=== PATIENT | female | born 1990 | race Hispanic/Latino ===

== ENCOUNTER 2016-03-10 14:03 | Emergency (ER) | payer OTHER ==
[2016-03-10] MEDS ORDERED: GENTAMICIN 0.3% OPHTH OINT 3.5 GM As Ordered ONE (15:00)
--- NOTE | 2016-03-10 15:09 | EDDOCDS ---
Nurse's Notes [facility] Name: India Garcia Age: 25 yrs Sex: Female : 1990 Arrival Date: 03/10/2016 Time: 14:03 Bed TR7 Private MD: RENITA NICHOLSON Diagnosis: Conjunctivitis-left eye Presentation: 03/10 14:12 Presenting complaint: Patient states: Left eye redness for 2 days. Adult Sepsis dwg Screening: The patient does not have new or worsening altered mentation. Patient's respiratory rate is less than 22. Systolic blood pressure is greater than 100. Patient has a qSOFA score of 0- Negative Sepsis Screen. Suicide/Homicide risk assessment- the patient denies having any suicidal and/or homicidal ideations and does not present with any other emotional, behavioral or mental health complaints. 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 Transition of care: patient was not received from another setting of care. 14:12 Acuity: ROBERTA Level 5 [facility] 14:12 Method Of Arrival: Walkin/Carried/Asstd [facility] Triage Assessment: 14:13 General: Appears in no apparent distress. Pain: Denies pain. Pt Declines HIV testing. 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 none - PMHx: none; - PSHx: none; - Social history: Smoking status: Patient states was never smoker of tobacco. No barriers to communication noted, The patient speaks fluent Mauritanian. - Family history: Not pertinent. - : The pt / caregiver states he / she is not on anticoagulants. Home medication list is obtained from the patient. - Exposure Risk Screening:: None identified. Screenin:05 Screening information is obtained from the patient. Fall risk: No risks identified. jmb Assistance ADL's: requires no assistance with activities of daily living. Abuse/DV Screen: The patient / caregiver reports he/she is: not in a situation that causes fear, pain or injury. Nutritional screening: No deficits noted. Advance Directives: Currently, there is no health care proxy. There is no active DNR order. There is no living will. There is no Power of Soaker Meat. home support is adequate. Assessment: 15:05 General: Patient instructed on discharge instructions. Patient asked if there were any b questions regarding discharge, patient stated no. Patient signed discharge instructions. Patient discharged in stable condition. . Vital Signs: 14:06 BP 107 / 73; Pulse 70; Resp 16; Temp 98.9; Pulse Ox 100% ; Weight 51.26 kg; Height 5 elp ft. 0 in. (152.40 cm); Pain 7/10; 15:05 BP 110 / 70; Pulse 68; Resp 18; Temp 98.8(O); Pulse Ox 100% on R/A; Pain 0/10; jmb 14:06 Body Mass Index 22.07 (51.26 kg, 152.40 cm) [facility] Vitals: 14:06 Log In Time: March 10, 2016 at 14:04. [facility] ED Course: 14:05 Patient visited by Melanie Peña PCA. elp 14:05 RENITA NICHOLSON is Private Physician. elp 14:05 Patient moved to Waiting elp 14:06 Patient visited by Melanie Peña PCA. elp 14:06 Patient moved to Pre RCE elp 14:12 Triage Initiated dwg 14:14 Patient moved to Triage 3 dwg 14:37 Homa Meneses PA-C is [facility]. dt4 14:40 Patient visited by Homa Meneses PA-C. dt4 15:04 Patient name changed from India\S\\S\Garcia\S\ to [place]\S\Jizal\S\Garcia. EDMS 15:04 Patient moved to TR7 jmb 15:05 [facility] Payment Agreement was scanned into [email or web address] and attached to record. lg 15:05 The patient / caregiver is instructed regarding the plan of care and ED course. jmb 15:05 No IV's were initiated during this patient's visit. No procedures done that require jmb assistance. Administered Medications: 15:05 Drug: Gentamicin 2 drps [gentamicin 0.3 % eye drops (2 drps)] Route: Ophthalmic; Site: [facility] left eye; Order Results: There are currently no results for this order. Outcome: 14:48 Discharge ordered by Provider. dt4 15:05 Discharge Assessment: Patient awake, alert and oriented x 3. No cognitive and/or jmb functional deficits noted. Patient verbalized understanding of disposition instructions. Patient awake and alert. obeys commands, Oriented to person, place and time. Patient verbalized understanding of disposition instructions. Patient has no functional deficits. patient administered narcotics - no. The following High Risk Discharge criteria are identified: None. Discharged to home ambulatory. Condition: stable. Discharge instructions given to patient, Instructed on discharge instructions, follow up and referral plans. medication usage, Demonstrated understanding of instructions, medications, Pt was receptive of discharge instructions/ teaching. Prescriptions given X 1. No special radiology studies were completed. Property sent home with patient. 15:08 Patient left the ED. monica Signatures: Dispatcher [employer] EDMS Steve Lopez, RN RN Taz Saldana, Reg Reg Melanie Zhou, Mario Thomas RN RN jmb Tschudi, Diane, PA-C PA-C dt4 MAHAD
--- NOTE | 2016-03-10 15:09 | EDDOCDS ---
Physician Documentation [facility] Name: India Garcia Age: 25 yrs Sex: Female : 1990 Arrival Date: 03/10/2016 Time: 14:03 Bed TR7 Private MD: RENITA NICHOLSON Disposition: 03/10/16 14:48 Discharged to Home/Self Care. Impression: Conjunctivitis - left eye. - Condition is Stable. - Discharge Instructions: Conjunctivitis (Viral and Bacterial). - Prescriptions for Gentamicin 0.3 % Ophthalmic Drops - instill 1 drop by OPHTHALMIC route every 4 hours for 7 days; 1 bottle. - Medication Reconciliation, Local Pharmacy Hours, Work Release Form - 2 day form. - Follow up: Emergency Department; When: As needed; Reason: Worsening of conditions. Follow up: Private Physician; When: 2 - 3 days; Reason: Wound/Symptom Recheck, Recheck today's complaints, Continuance of care. - Problem is new. - Symptoms are unchanged. Historical: - Allergies: no known allergies; - Home Meds: 1. none - PMHx: none; - PSHx: none; - Social history: Smoking status: Patient states was never smoker of tobacco. No barriers to communication noted, The patient speaks fluent Kyrgyz. - Family history: Not pertinent. - : The pt / caregiver states he / she is not on anticoagulants. Home medication list is obtained from the patient. - Exposure Risk Screening:: None identified. 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 0 in. (152.40 cm); Pain 7/10; 15:05 BP 110 / 70; Pulse 68; Resp 18; Temp 98.8(O); Pulse Ox 100% on R/A; Pain 0/10; jmb 14:06 Body Mass Index 22.07 (51.26 kg, 152.40 cm) elp MDM: 14:47 Gentamicin Drops 0.3 % 2 drps Ophthalmic once; left eye once, thank you. ordered. dt4 15:05 Financial registration complete. lg 15:05 [facility] Payment Agreement was scanned into [employer] and attached to record. lg Administered Medications: 15:05 Drug: Gentamicin 2 drps [gentamicin 0.3 % eye drops (2 drps)] Route: Ophthalmic; Site: [facility] left eye; Signatures: Steve Lopez, Taz Perez RN, Reg Reg lg Mario Carrasco RN RN jmb Tschudi, Diane, CATINA DOMINIQUE dt4 The chart was reviewed and I authenticate all verbal orders and agree with the evaluation and treatment provided.Attachments: 15:05 [facility] Payment Agreement lg MTDD
--- NOTE | 2016-03-12 16:09 | EDDOCDS ---
Nurse's Notes [facility] Name: India Garcia Age: 25 yrs Sex: Female : 1990 Arrival Date: 03/10/2016 Time: 14:03 Bed TR7 Private MD: RENITA NICHOLSON Diagnosis: Conjunctivitis-left eye Presentation: 03/10 14:12 Presenting complaint: Patient states: Left eye redness for 2 days. Adult Sepsis dwg Screening: The patient does not have new or worsening altered mentation. Patient's respiratory rate is less than 22. Systolic blood pressure is greater than 100. Patient has a qSOFA score of 0- Negative Sepsis Screen. Suicide/Homicide risk assessment- the patient denies having any suicidal and/or homicidal ideations and does not present with any other emotional, behavioral or mental health complaints. 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 Transition of care: patient was not received from another setting of care. 14:12 Acuity: ROBERTA Level 5 [facility] 14:12 Method Of Arrival: Walkin/Carried/Asstd [facility] Triage Assessment: 14:13 General: Appears in no apparent distress. Pain: Denies pain. Pt Declines HIV testing. 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 none - PMHx: none; - PSHx: none; - Social history: Smoking status: Patient states was never smoker of tobacco. No barriers to communication noted, The patient speaks fluent [place]. - Family history: Not pertinent. - : The pt / caregiver states he / she is not on anticoagulants. Home medication list is obtained from the patient. - Exposure Risk Screening:: None identified. Screenin:05 Screening information is obtained from the patient. Fall risk: No risks identified. jmb Assistance ADL's: requires no assistance with activities of daily living. Abuse/DV Screen: The patient / caregiver reports he/she is: not in a situation that causes fear, pain or injury. Nutritional screening: No deficits noted. Advance Directives: Currently, there is no health care proxy. There is no active DNR order. There is no living will. There is no Power of Linoleum Layer Apprentice. home support is adequate. Assessment: 15:05 General: Patient instructed on discharge instructions. Patient asked if there were any b questions regarding discharge, patient stated no. Patient signed discharge instructions. Patient discharged in stable condition. . Vital Signs: 14:06 BP 107 / 73; Pulse 70; Resp 16; Temp 98.9; Pulse Ox 100% ; Weight 51.26 kg; Height 5 elp ft. 0 in. (152.40 cm); Pain 7/10; 15:05 BP 110 / 70; Pulse 68; Resp 18; Temp 98.8(O); Pulse Ox 100% on R/A; Pain 0/10; jmb 14:06 Body Mass Index 22.07 (51.26 kg, 152.40 cm) [facility] Vitals: 14:06 Log In Time: March 10, 2016 at 14:04. [facility] ED Course: 14:05 Patient visited by Melanie Peña PCA. elp 14:05 RENITA NICHOLSON is Private Physician. elp 14:05 Patient moved to Waiting elp 14:06 Patient visited by Melanie Peña PCA. elp 14:06 Patient moved to Pre RCE elp 14:12 Triage Initiated dwg 14:14 Patient moved to Triage 3 dwg 14:37 Homa Meneses PA-C is [facility]. dt4 14:40 Patient visited by Homa Meneses PA-C. dt4 15:04 Patient name changed from India\S\\S\Garcia\S\ to [place]\S\Jizal\S\Garcia. EDMS 15:04 Patient moved to TR7 jmb 15:05 [facility] Payment Agreement was scanned into [employer] and attached to record. lg 15:05 The patient / caregiver is instructed regarding the plan of care and ED course. jmb 15:05 No IV's were initiated during this patient's visit. No procedures done that require b assistance. 17:24 T-Sheet-- Draft Copy was scanned into [employer] and attached to record. klr Administered Medications: 15:05 Drug: Gentamicin 2 drps [gentamicin 0.3 % eye drops (2 drps)] Route: Ophthalmic; Site: [facility] left eye; Order Results: There are currently no results for this order. Outcome: 14:48 Discharge ordered by Provider. dt4 15:05 Discharge Assessment: Patient awake, alert and oriented x 3. No cognitive and/or jmb functional deficits noted. Patient verbalized understanding of disposition instructions. Patient awake and alert. obeys commands, Oriented to person, place and time. Patient verbalized understanding of disposition instructions. Patient has no functional deficits. patient administered narcotics - no. The following High Risk Discharge criteria are identified: None. Discharged to home ambulatory. Condition: stable. Discharge instructions given to patient, Instructed on discharge instructions, follow up and referral plans. medication usage, Demonstrated understanding of instructions, medications, Pt was receptive of discharge instructions/ teaching. Prescriptions given X 1. No special radiology studies were completed. Property sent home with patient. 15:08 Patient left the ED. monica Signatures: Dispatcher [employer] EDMS Steve Lopez, RN RN Taz Saldana, Nam Reg Melanie Zhou, SUPPLY CHAIN PROJECT MANAGER SUPPLY CHAIN PROJECT MANAGER Mario Brown RN RN jmb Tschudi, Diane, PAChaoC PAChaoC dt4 Sara Navas Chart Complete MTDAnuj
--- NOTE | 2016-03-12 16:09 | EDDOCDS ---
Physician Documentation [facility] Name: India Garcia Age: 25 yrs Sex: Female : 1990 Arrival Date: 03/10/2016 Time: 14:03 Bed TR7 Private MD: RENITA NICHOLSON Disposition: 03/10/16 14:48 Discharged to Home/Self Care. Impression: Conjunctivitis - left eye. - Condition is Stable. - Discharge Instructions: Conjunctivitis (Viral and Bacterial). - Prescriptions for Gentamicin 0.3 % Ophthalmic Drops - instill 1 drop by OPHTHALMIC route every 4 hours for 7 days; 1 bottle. - Medication Reconciliation, Local Pharmacy Hours, Work Release Form - 2 day form. - Follow up: Emergency Department; When: As needed; Reason: Worsening of conditions. Follow up: Private Physician; When: 2 - 3 days; Reason: Wound/Symptom Recheck, Recheck today's complaints, Continuance of care. - Problem is new. - Symptoms are unchanged. Historical: - Allergies: no known allergies; - Home Meds: 1. none - PMHx: none; - PSHx: none; - Social history: Smoking status: Patient states was never smoker of tobacco. No barriers to communication noted, The patient speaks fluent Greenlandic. - Family history: Not pertinent. - : The pt / caregiver states he / she is not on anticoagulants. Home medication list is obtained from the patient. - Exposure Risk Screening:: None identified. 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 0 in. (152.40 cm); Pain 7/10; 15:05 BP 110 / 70; Pulse 68; Resp 18; Temp 98.8(O); Pulse Ox 100% on R/A; Pain 0/10; jmb 14:06 Body Mass Index 22.07 (51.26 kg, 152.40 cm) elp MDM: 14:47 Gentamicin Drops 0.3 % 2 drps Ophthalmic once; left eye once, thank you. ordered. dt4 15:05 Financial registration complete. lg 15:05 [facility] Payment Agreement was scanned into [employer] and attached to record. lg 17:24 T-Sheet-- Draft Copy was scanned into [employer] and attached to record. klr Administered Medications: 15:05 Drug: Gentamicin 2 drps [gentamicin 0.3 % eye drops (2 drps)] Route: Ophthalmic; Site: [facility] left eye; Signatures: Steve Lopez RN RN dwg Ganter, LoriLee, Nam Browning lg Mario Carrasco RN RN jmb Tschudi, Diane, PA-C PA-C dt4 Redder, Kathie klr The chart was reviewed and I authenticate all verbal orders and agree with the evaluation and treatment provided.Attachments: 15:05 [facility] Payment Agreement lg 17:24 T-Sheet-- Draft Copy klr Chart Complete MTDD
--- NOTE | 2016-03-12 16:09 | EDDOCDS ---
Physician Documentation [facility] Name: India Garcia Age: 25 yrs Sex: Female : 1990 Arrival Date: 03/10/2016 Time: 14:03 Bed TR7 Private MD: RENITA NICHOLSON Disposition: 03/10/16 14:48 Discharged to Home/Self Care. Impression: Conjunctivitis - left eye. - Condition is Stable. - Discharge Instructions: Conjunctivitis (Viral and Bacterial). - Prescriptions for Gentamicin 0.3 % Ophthalmic Drops - instill 1 drop by OPHTHALMIC route every 4 hours for 7 days; 1 bottle. - Medication Reconciliation, Local Pharmacy Hours, Work Release Form - 2 day form. - Follow up: Emergency Department; When: As needed; Reason: Worsening of conditions. Follow up: Private Physician; When: 2 - 3 days; Reason: Wound/Symptom Recheck, Recheck today's complaints, Continuance of care. - Problem is new. - Symptoms are unchanged. Historical: - Allergies: no known allergies; - Home Meds: 1. none - PMHx: none; - PSHx: none; - Social history: Smoking status: Patient states was never smoker of tobacco. No barriers to communication noted, The patient speaks fluent Turkmen. - Family history: Not pertinent. - : The pt / caregiver states he / she is not on anticoagulants. Home medication list is obtained from the patient. - Exposure Risk Screening:: None identified. 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 0 in. (152.40 cm); Pain 7/10; 15:05 BP 110 / 70; Pulse 68; Resp 18; Temp 98.8(O); Pulse Ox 100% on R/A; Pain 0/10; jmb 14:06 Body Mass Index 22.07 (51.26 kg, 152.40 cm) elp MDM: 14:47 Gentamicin Drops 0.3 % 2 drps Ophthalmic once; left eye once, thank you. ordered. dt4 15:05 Financial registration complete. lg 15:05 [facility] Payment Agreement was scanned into [employer] and attached to record. lg 17:24 T-Sheet-- Draft Copy was scanned into [employer] and attached to record. klr Administered Medications: 15:05 Drug: Gentamicin 2 drps [gentamicin 0.3 % eye drops (2 drps)] Route: Ophthalmic; Site: [facility] left eye; Signatures: Steve Lopez RN RN dwg Ganter, LoriLee, Nam Browning lg Mario Carrasco RN RN jmb Tschudi, Diane, PA-C PA-C dt4 Redder, Kathie klr The chart was reviewed and I authenticate all verbal orders and agree with the evaluation and treatment provided.Attachments: 15:05 [facility] Payment Agreement lg 17:24 T-Sheet-- Draft Copy klr Chart Complete MTDD
== END 2016-03-10 15:08 | disposition home or self-care (01) ==
LOC: M ED 14:03
DX: H10.32 Unspecified acute conjunctivitis, left eye (principal)

== ENCOUNTER 2016-10-11 17:35 | Emergency (ER) | payer OTHER ==
[2016-10-11] MEDS ORDERED: ACETAMINOPHEN TAB 650MG DOSE (2X325MG) PO ONE (20:00)
[2016-10-11] MEDS ORDERED: ONDANSETRON 4 MG ORAL DISINTEGRATING TAB (S0181) PO ONE (20:00)
[2016-10-11] MEDS ORDERED: ZOFR4TAB3 PO ×2 (20:06→20:09)
== END 2016-10-11 20:19 | disposition home or self-care (01) ==
LOC: M ED 17:35
DX: R11.2 Nausea with vomiting, unspecified (principal); R19.7 Diarrhea, unspecified; R10.84 Generalized abdominal pain; B34.9 Viral infection, unspecified

== ENCOUNTER 2017-03-11 07:04 | Emergency (ER) | payer OTHER ==
[2017-03-11] MEDS: IBUPROFEN 600 MG TAB PO (09:15)
== END 2017-03-11 11:01 | disposition home or self-care (01) ==
LOC: M ED 07:04
DX: S50.11XA Contusion of right forearm, initial encounter (principal); S80.02XA Contusion of left knee, initial encounter; V43.52XA Car driver injured in collision with other type car in traffic accident, initial encounter; Y92.410 Unspecified street and highway as the place of occurrence of the external cause; Y93.9 Activity, unspecified; J30.89 Other allergic rhinitis
CPT/HCPCS: 73090

== ENCOUNTER 2017-03-18 16:37 | Emergency (ER) | payer OTHER ==
[2017-03-18] MEDS: diphenhydrAMINE INJ 50MG/ML VIAL (J1200) IV (21:15)
[2017-03-18] MEDS: METOCLOPRAMIDE INJ 10MG/2ML VIAL (J2765) IV (21:15)
[2017-03-18] MEDS: KETOROLAC 30 MG/ML VIAL (J1885) IV (21:15)
== END 2017-03-18 22:39 | disposition home or self-care (01) ==
LOC: M ED 16:37
DX: R51 Headache (principal); V43.52XA Car driver injured in collision with other type car in traffic accident, initial encounter; Y92.9 Unspecified place or not applicable; Y93.9 Activity, unspecified; J30.89 Other allergic rhinitis; Z79.899 Other long term (current) drug therapy
CPT/HCPCS: J1200